=== PATIENT | male | born 1965 ===

== ENCOUNTER 2024-02-29 03:10 | Outpatient (CLI) | payer OTHER, MEDICAID, SELFPAY ==
[2024-02-29] MEDS: Levalbuterol HFA 15 GM INH 4 PUFF IH (11:21)
[2024-02-29] MEDS: Inhaler, Assist Device 1 EACH MC (11:21)
--- NOTE | 2024-03-14 15:44 | W.PFT ---
Date of service: 02/29/24 Time of Service: 10:20 Pulmonary Function Test Result Requesting Provider Candida Lanza Indications: Emphysema Interpretation Spirometry: Moderate decrease in FEV1/FVC and FEV1, FVC Impression Moderate obstructive ventilatory defect w/ no reversibility after albuterol. Flow volume curve suggests obstruction. Clinical Correlation therefore is recommended.
--- NOTE | 2024-03-15 15:30 | W.6MWT ---
Date of service: 02/29/24 Time of Service: 10:07 6 Minute Walk Test Note: Patient walked 426 meters and demonstrated no desaturations requiring supplemental O2. Lowest O2Sat was 89% briefly on minute 2.
== END 2024-02-29 03:11 | disposition home or self-care (01) ==
LOC: RT 03:11
PROVIDERS: PCP Family Medicine; Visit Provider Pediatrics Pediatric Rheumatology
DX: Z02.71 Encounter for disability determination (principal); J43.9 Emphysema, unspecified
CPT/HCPCS: 00123; 94060

== ENCOUNTER → 2024-03-24 01:37 | Outpatient (CLI) | payer OTHER, SELFPAY ==
--- NOTE | 2024-03-24 | DI.RAD_ITS ---
Exam(s) XR CHEST 2V PA LATERAL EXAM: XR CHEST 2V PA LATERAL CLINICAL HISTORY: PANLOBULAR EMPHYSEMA, Z02.71,DISABILITY DETERMINATION. TECHNIQUE: 2D digital imaging was performed. COMPARISON: No exams were available for comparison FINDINGS: 2 views: Heart size is normal. The mediastinum is not widened. Bilateral hyperinflation noted. Appears to be some atelectasis in the left lung base. No pleural ef fusions. No pulmonary edema. No fractures. IMPRESSION: Hyperinflation. Atelectasis versus mild infiltrate in the left lung base. There is possibly that th is may just represent extension of the pericardiac fat pad. If clinically indicated can be resolved by CT scan if there are no previous studies for comparison DATA REPOSITORY: RADIATION DOSE DELIVERED:
== END ==
PROVIDERS: PCP Family Medicine; Visit Provider Pediatrics Pediatric Rheumatology
DX: J43.1 Panlobular emphysema (principal); J98.11 Atelectasis; Z02.71 Encounter for disability determination
CPT/HCPCS: 71046

== ENCOUNTER → 2024-04-14 01:02 | Outpatient (CLI) | payer MEDICAID, SELFPAY ==
--- NOTE | 2024-04-14 13:45 | DI.CTLCSR_ITS ---
Exam(s) CT CHEST LUNG CANCER SCREEN EXAM: CT CHEST LUNG CANCER SCREEN CLINICAL HISTORY: SCREENING FOR LUNG CA, TOBACCO ABUSE, Z72.0 TECHNIQUE: Imaging Protocol: Axial computed tomography images with coronal and sagittal reformatted images were created and reviewed. Low dose screening protocol. COMPARISON: No exams were available for comparison FINDINGS: Tracheobronchial tree: No bronchiectasis or mucus plugging. Mediastinum and Heather: No dominant adenopathy or fluid collection. Pulmonary parenchyma: No consolidation or dominant measurable mass. No visible emphysematous changes. Lung Nodules: None. Pleura: No effusion. No pneumothorax. Heart: The heart is not dilated. No coronary artery calcifications are seen. Aorta: Thoracic aorta non-dilated. Upper abdomen: Unremarkable. Bones: Unremarkable for age. Soft Tissues: Unremarkable. IMPRESSION: No suspicious pulmonary nodules. Lung RADS Cat 1 - Negative: No nodules and definitely benign nodules Lung-RADS 1.0 CATEGORIES: Category 0 - Prior chest CT exam(s) being located for comparison. Category 1 - Annual screening in 12 months. No nodules or definitely benign nodules. Category 2 - Annual screening in 12 months. Benign appearance. Nodules with low likelihood of becomin g active cancer. Category 3 - 6-month follow-up. Probably benign. Short-term follow-up suggested. Nodules with low lik elihood of becoming active cancer. Category 4A - 3-month follow-up and CT/PET if >8 mm in size. Suspicious finding. Findings which requi re additional testing. Category 4B - Findings which require additional testing and tissue sampling. Category 4X - Category 3 or 4 nodules with additional features or imaging findings that increases the suspicion of malignancy. Modifier S- Potentially clinically significant findings (non lung cancer) RADIATION DOSE DELIVERED: Total DLP DATA REPOSITORY: All CT scans at this facility are submitted to the National Radiology Data Registry (NRDR) Dose Index Registry (DIR) with the [employer] ([employer]). RADIATION OPTIMIZATION: All CT scans at this facility use at least one of these dose optimization te chniques: automated exposure control; mA and/or kV adjustment per patient size (includes targeted exa ms where dose is matched to clinical indication); or iterative reconstruction.
== END ==
PROVIDERS: PCP Family Medicine; Visit Provider Family Medicine
DX: Z72.0 Tobacco use (principal)
CPT/HCPCS: 71271